=== PATIENT | female | born 1980 | race Caucasian/White ===

== ENCOUNTER 2017-08-19 17:23 | Emergency (ER) | payer SELFPAY ==
[2017-08-19 17:36] VITALS: BMI 29.6
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
[2017-08-19] MEDS ORDERED: NORCO 7.5/325 MG TAB PO ONE (19:58)
[2017-08-19] MEDS ORDERED: NORCO 5/325 MG TAB ONE (20:02)
[2017-08-19] MEDS ORDERED: NORCO 7.5/325 MG TAB ONE (20:04)
[2017-08-19 20:10] VITALS: BP 140/85
== END 2017-08-19 20:09 | disposition home or self-care (01) ==
LOC: ER 17:43
DX: S93.401A Sprain of unspecified ligament of right ankle, initial encounter (principal); S83.91XA Sprain of unspecified site of right knee, initial encounter; V49.9XXA Car occupant (driver) (passenger) injured in unspecified traffic accident, initial encounter
CPT/HCPCS: 73564; 73630; 99282